=== PATIENT | male | born 1940 | race Two or more races ===

== ENCOUNTER 2025-08-28 12:30 | Outpatient (REF) | payer OTHER, SELFPAY ==
[2025-08-28 17:57] LABS: MANUAL DIFF FLAG NO
[2025-08-28 18:11] LABS: Hematocrit 44.2 % (42.0-52.0); Hemoglobin 14.2 g/dl (14.0-18.0); Imm Gran Abs Auto 0.02 X10*3/uL (0.00-0.03); Imm Gran Pct Auto 0.3 % (0.0-0.4); Lymphocytes Absolute Auto 1.8 X10*3/uL (1.2-4.9); Mean Corpuscular HGB Conc 32.1 g/dl (31.0-36.0); Mean Corpuscular Hemoglobin 28.3 pg (27.0-33.0); Mean Corpuscular Volume 88.0 fL (80.0-98.0); NRBC Abs Auto 0.000 X10*3/uL (0.0-0.012); NRBC Pct Auto 0.0 /100WBC (0.0-0.2); Platelet Count 173 X10*3/uL (160-400); Red Blood Count 5.02 X10*6/uL (4.60-5.80); White Blood Count 6.5 X10*3/uL (4.8-10.8)
[2025-08-28 18:39] LABS: Appearance Urine Turbid; Glucose Urine UA Negative (Negative); PH 5.5 (5.0-9.0); Specific Gravity - Urine >= 1.030 (1.005-1.025)
[2025-08-28 18:41] LABS: Alanine Aminotransferase 70 U/L (0-40); Albumin Level 4.3 g/dL (3.5-5.0); Alkaline Phosphatase 122 U/L (39-117); Anion Gap 11 (12-20); Aspartate Amino Transferase 46 U/L (5-37); Blood Urea Nitrogen 20 mg/dL (9-16); Calcium 9.2 mg/dL (8.4-10.2); Carbon Dioxide 28 mmol/L (22-29); Chloride 108 mmol/L (96-108); Cholesterol 121 mg/dL (<200); Estimated Glomerular Filt Rate 54; HDL Cholesterol 34 mg/dL (>40); Magnesium 2.1 mg/dL (1.6-2.6); Potassium 4.1 mmol/L (3.3-5.1); Sodium 143 mmol/L (135-145); Total Protein 7.2 g/dL (6.5-8.0); Triglycerides 184 mg/dL (<150)
[2025-08-28 18:46] LABS: Microalbum/Creatinine Ratio Ur 4.9 ug/mg cr (<30)
[2025-08-28 18:59] LABS: Folate 6.3 ng/mL (> or = 4.0); Vitamin B12 254 pg/mL (200-900)
[2025-08-29 03:51] LABS: HBS Num1 0.33 mIU/mL (0-7.99); HBsAGNum1 0.38 S/CO (0.00-0.99); Hepatitis B Surface Antigen Negative (Negative); ~HepC Num1 0.10 S/CO (0.00-0.79); ~Hepatitis B Surface Antibody NONREACTIVE (Nonreactive); ~Hepatitis C Antibody Nonreactive (Nonreactive)
[2025-09-01 16:32] LABS: VITAMIN D (1,25 OH) D3 43 pg/mL; Vit D (1,25-Dihydroxy) Total 43 pg/mL (18-72); Vitamin D (1,25 OH) D2 <8 pg/mL
== END 2025-08-28 12:31 | disposition home or self-care (01) ==
LOC: HO.HKASLDS 12:30
PROVIDERS: PCP Student in an Organized Health Care Education/Training Program; Visit Provider Student in an Organized Health Care Education/Training Program
DX: I10 Essential (primary) hypertension (principal); E78.00 Pure hypercholesterolemia, unspecified; K21.9 Gastro-esophageal reflux disease without esophagitis; J30.2 Other seasonal allergic rhinitis; E66.811 Obesity, class 1; Z68.32 Body mass index [BMI] 32.0-32.9, adult; Z13.1 Encounter for screening for diabetes mellitus
CPT/HCPCS: 36415; 80053; 80061; 81003; 82043; 82570; 82607; 82652; 82746; 83036; 83735; 84443; 85025; 86706; 86803; 87340; 99202

== ENCOUNTER 2025-08-28 12:30 | Outpatient (AMB) | payer OTHER, SELFPAY ==
--- OUTSIDE RECORDS SUMMARY | 2025-03-29 06:00 | XMS_ITS ---
Author Organization [facility] [place] Address [address] [place] [address] Care Team Providers Care Presser And Shaper Knitted Goods Name Role Phone Gene Tamayo MD Primary Care Provider Fortino Dexter Unavailable [phone] Allergies Allergen (clinical drug ingredient) Drug/Non Drug [...] Negative Encounters Encounter Location Date Provider Diagnosis [facility] [place] [address] [place] [phone] 03/29/2025 Fortino Medinaier Plan Of Treatment Next Appt Details Provider Name:Fortino Bey , 09/27/2025 02:00:00 PM, [address] [place] [address], [phone], Provider Name:Fortino Bey , 12/13/2025 02:30:00 PM, [address] [place] [address], [phone], Progress Notes * Lucius VELASQUEZ LDOB: [birth year] (85 yo M)Acc No.[id number]:03/29/2025 Progress Notes Patient: Lucius GRAY Provider: Sona Bey DPM :1940 A ge:85 Y S ex:Male Date:03/29/2025 Address:[address] [place] [address] , [address]-[phone] Pcp:Gene Tamayo MD Subjective: * Chief Complaints: * * ROS: G eneral/Constitutional: Nausea d enies. V omiting d enies. H daniel Thirst d enies. L oss appetite d [...] enies. C ardiovascular: Pacemaker d enies. M PRACTICING DERMATOLOGIST d enies. W PW d enies. C [...] 0 03/29/2025 Generated for Minh john/Emeli/Evgenyitting on: 1 03:50 PM EDT
--- OUTSIDE RECORDS SUMMARY | 2025-04-12 09:45 | XMS_ITS ---
Author Organization [facility] Address [address] [place] [phone] Care Team Providers Care Business Systems Advisor Name Role Phone Gene Tamayo MD Primary Care Provider UnavailFortino Snider Unavailable [phone] Allergies Allergen (clinical drug ingredient) Drug/Non Drug Allergy documented on EMR Reaction Allergy Type Onset Date Status ibuprofen Advil Unknown Drug Allergy Active Aleve Unknown Drug Allergy Active meperidine Demerol Unknown Drug Allergy Active Motrin Unknown Drug Allergy Active Encounters Encounter [facility] Date [facility] [phone] [facility]/12/[facility]25 Fortino Bey Plan Of Treatment Next Appt Details Provider Name:Fortino Bey , 09/27/2025 02:00:00 PM, [address] [place] [address], [phone], Provider Name:Fortino Bey , 12/13/2025 02:30:00 PM, [address] [place] [address], [phone], Progress Notes * Lucius VELASQUEZ LDOB: [birth year] (85 yo M)Acc No.[id number]:04/12/2025 Progress Note Patient: Lucius GRAY Katerine Provider: Sona Bey DPM :1940 A ge:85 Y S ex:Male Date:04/12/2025 Address:[address] [place] [address] , [address]-[phone] Pcp:Gene Tamayo MD Subjective: * Chief [...] 0 04/12/2025 Generated for Minh john/Emeli/Joe on: 03:50 PM EDT
--- NOTE | 2025-08-28 13:14 | MHC.PC.OV ---
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 Online Producer Required: No Accompanied by: Self / Same As Patient Allergies acetaminophen (From Vicodin) Allergy (Mild, Verified 08/28/25 13:47) Itching cyclobenzaprine (From Flexeril) Allergy (Mild, Verified 08/28/25 13:47) Itching gabapentin Allergy (Mild, Verified 08/28/25 13:47) Itching hydrocodone (From Vicodin) Allergy (Mild, Verified 08/28/25 13:47) Itching naproxen Allergy (Mild, Verified 08/28/25 13:47) Itching terbinafine (From Lamisil) Allergy (Mild, Verified 08/28/25 13:47) Itching Tobacco use date assessed: 08/28/25 Fall risk assessment: No Falls in past year Last assessed Fall Risk: 08/28/25 Dental Screening Dental Screen Date: 08/28/25 Did you have a dental visit in the last 12 months?: Yes Did you have a dental problem in the last 6 months where you did not have access to dental care?: Yes Was dental information given to patient?: Patient has dentist HPI HPI Comments History of Present Illness Details History of Present Illness patient is coming in to establish care today Hypercholesterolemia: The patient has a history of cholesterol issues. Hypertension Currently on amlodipine and atenolol Hyperlipidemia currently on atorvastatin GERD Currently on famotidine History of Total Knee and Hip Arthroplasty and Limb Pain: The patient has a history of knee and hip replacements, with the knee surgery performed approximately one year ago for severe osteoarthritis. He has metal implants in his knee. 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 He reports a past finger injury that occurred a long time ago. Preventative Care: The patient, aged 85, denies ever having a colonoscopy for colon cancer screening. He denies a history of smoking and reports only occasional alcohol consumption during vacations. The patient reports no issues with his heart, kidneys, or intestines. Surgical History: - Knee replacement, approximately one year ago. - Hip replacement, date unspecified. Social History: - Alcohol Use: Denies regular use, reports drinking occasionally on vacation. - Tobacco Use: Denies history of smoking. Past Medical History - Hypercholesterolemia -hypertension -GERD -seasonal allergies - Severe osteoarthritis of the knee - History of a remote finger injury Health Maintenance - A comprehensive lab panel will be drawn, including a complete blood count, metabolic panel for liver and kidney function, vitamin B12, folate, calcium, and vitamin D. - Follow-up is scheduled in two weeks to discuss the results and determine the subsequent course of action. [facility] Family History (Updated 08/28/25 @ 13:16 by Carissa Morrell [facility]) Mother No problems noted. Father No problems noted. Social History Housing: Apartment Patient Tobacco Use Status: Never used Tobacco service: No Current occupational status: retired Cognitive needs: Yes (ocassionally) Hearing needs: No Vision needs: Yes (reading glasses) Questionnaire PHQ-9 Over the last 2 weeks, how often have you been bothered by any of the following problems? 1. Little interest or pleasure in doing things: not at all 2. Feeling down, depressed, or hopeless: not at all 3. Trouble falling or staying asleep, or sleeping too much: not at all 5. Poor appetite or overeating: not at all 6. Feeling bad about yourself - or that you are a failure or have let yourself or your family down: not at all 7. Trouble concentrating on things, such as reading the newspaper or watching television: not at all 8. Moving or speaking so slowly that other people could have noticed. Or the opposite - being so fidgety or restless that you have been moving around a lot more than usual: not at all 9. Thoughts that you would be better off or of hurting yourself in some way: not at all Source: Developed by Drs. Nitin Ruby, Deysi Robledo, Kev Jewell and colleagues, with an educational shannan from [employer]. Thrive Questionnaire I am a: Patient What is your living situation today?: I have a steady place to live Within the past 12 months, did the food you bought not last and you didn't have the money to get more?: Never true Within the past 12 months, did you worry whether your food would run out before you got money to buy more?: Never true Do you have trouble paying for medicines?: No Do you have trouble getting transportation to medical appointments?: No Do you have trouble paying your heating and electricity bill?: No Do you have trouble taking care of your child, family member or friend?: No Are you currently unemployed and looking for a job?: No Are you interested in more education?: No Please select the resources that you would like help with: None Currently or been in a relationship where the following occur: No concerns reported THRIVE Score: 0 AUDIT C Alcohol Use Questionnaire (AUDIT-C) 1. How often do you have a drink containing alcohol?: Never Total Score: 0 COBY-7 AMB Questionnaire COBY-7 Feeling nervous, anxious, or on edge: 0 = Not at all Not being able to stop or control worryin = Not at all Worrying too much about different things: 0 = Not at all Trouble relaxin = Not at all Being so restless that it is hard to sit still: 0 = Not at all Becoming easily annoyed or irritable: 0 = Not at all Feeling afraid as if something awful might happen: 0 = Not at all Total COBY-7 score (0-4 normal; 5-9 mild; 10-14 moderate; 15-21 severe): 0 Source: Developed by Drs. Nitin Ruby, Deysi Robledo, Kev Jewell and colleagues, with an educational shannan from [employer]. Review of Systems Narrative Review of Systems - Neurological: Denies headaches. - Cardiovascular: Denies any history of heart problems. - Genitourinary: Reports normal urination. Denies history of kidney problems. - Gastrointestinal: Reports normal bowel movements. Denies history of intestinal problems. - Musculoskeletal: Reports occasional foot pain with ambulation. - Constitutional: Reports sleeping well. 10-point ROS reviewed and negative except as noted in HPI Physical exam (Primary Care) Vital Signs: Last Vital Signs Temp 97.5 F 08/28/25 13:21 Pulse 63 08/28/25 13:21 Resp 16 08/28/25 13:21 BP 141/69 H 08/28/25 13:21 Pulse Ox 97 08/28/25 13:21 Oxygen Delivery Method Room Air 08/28/25 13:21 BMI result Body Mass Index 32.3 Tobacco/Smoking Status: Tobacco use Status Tobacco use date assessed 08/28/25 08/28/25 13:16 Patient Tobacco Use Status Never used Tobacco 08/28/25 13:25 Currently or been in a relationship where the following occur: No concerns reported Narrative Physical Exam General: Well-appearing, in no acute distress. Vital signs: Within normal limits. HEENT: Normocephalic, atraumatic. PERRLA, EOMI. Conjunctiva clear, sclera anicteric. Oropharynx clear, mucous membranes moist. TMs intact bilaterally. Neck: Supple, no lymphadenopathy, no thyromegaly, no JVD or carotid bruits. Reports pain in the neck, possibly related to magnesium deficiency. Cardiovascular: RRR, normal S1/S2, no murmurs, rubs, or gallops. Peripheral pulses 2+ and symmetric. No edema. Respiratory: Lungs clear to auscultation bilaterally, no wheezes, rales, or rhonchi. Normal effort. Abdomen: Soft, non-tender, non-distended. Normoactive bowel sounds. No hepatosplenomegaly, no masses. MSK: Full range of motion, no joint swelling or deformity. Normal gait. History of knee and hip surgery with metal implants due to severe osteoarthritis. Complains of foot pain when walking. Skin: Warm, dry, intact. No rashes, lesions, or pallor. Neuro: Alert and oriented x3. Cranial nerves II-XII intact. Strength 5/5 throughout. Sensation intact. Reflexes 2+ symmetric. Normal coordination and gait. Psych: Appropriate mood and affect. Normal judgment and insight. Coding Level of Care Code New Pt Level 4 (88516) Diagnoses Hypertension I10 Hyperlipidemia E78.5 GERD (gastroesophageal reflux disease) K21.9 Seasonal allergies J30.2 Assessment & Plan Assessment & Plan (1) Hypertension: Code(s): I10 - Essential (primary) hypertension (2) Hyperlipidemia: Code(s): E78.5 - Hyperlipidemia, unspecified (3) GERD (gastroesophageal reflux disease): Code(s): K21.9 - Gastro-esophageal reflux disease without esophagitis (4) Seasonal allergies: Code(s): J30.2 - Other seasonal allergic rhinitis Plan Consent Patient was informed and verbally consented to the use of an ambient scribe for clinic note documentation during this visit. Plan 1. hypertension continue with current medication labs 2. hyperlipidemia Continue with current medication labs 3. Seasonal allergies Continue current medication 4. GERD Continue current medication Discussion Notes I had a discussion with the patient regarding his health maintenance. Given his age of 85 and the fact that he has never had a colonoscopy, I recommended colon cancer screening. To avoid the risks of sedation, we opted for a Cologuard test, and I explained that a kit would be sent to his home. In response to his complaints of foot pain, I explained that we would investigate potential mineral or vitamin deficiencies by checking his magnesium and vitamin D levels, among others. I informed him that comprehensive blood work has been ordered and that we will meet in two weeks to review the results and decide on the next steps for his care. Patient Instructions - continue all chronic disease medications - A Cologuard kit will be mailed to your home for colon cancer screening. Please follow the instructions provided. - Please have your blood drawn for the ordered tests, which will check your blood cells, liver, kidneys, and vitamin levels. - Schedule a follow-up appointment in two weeks to discuss your test results. Medical Decision Making The patient is an 85-year-old male presenting for a general health evaluation. A significant finding is the patient's lack of prior colon cancer screening. Given his advanced age, the risks associated with procedural sedation for a colonoscopy outweigh the benefits of direct visualization at this time. Therefore, a non-invasive stool-based DNA test (Cologuard) is a clinically appropriate and safer alternative for screening. The patient's complaint of foot pain, in the context of previous orthopedic surgeries, warrants further investigation for underlying metabolic or nutritional causes. A comprehensive lab panel, including magnesium and vitamin D, was ordered to rule out deficiencies that could contribute to his symptoms. A follow-up is planned in two weeks to review laboratory findings and guide further management. Total time spent caring for the patient today was 30 minutes. This includes time spent before the visit reviewing the chart, time spent documenting, and time spent reviewing laboratory results, diagnostic imaging, medications, performing a medically necessary evaluation, counseling on diagnoses, care coordination Orders: Orders Comprehensive Met. Panel Today Z13.9 - Encounter for screening, unspecified Hepatitis B Surface Antibody Today Z13.9 - Encounter for screening, unspecified Hepatitis C Antibody Today Z13.9 - Encounter for screening, unspecified TSH reflex Free T4 Today Z13.9 - Encounter for screening, unspecified UA CC w/rflx Micro + Cult Today Z13.9 - Encounter for screening, unspecified Vitamin D 1,25 dihydroxy Today Z13.9 - Encounter for screening, unspecified Vitamin B12 and Folate Today Z13.9 - Encounter for screening, unspecified Complete Blood Count Auto Diff Today Z13.9 - Encounter for screening, unspecified Hemoglobin A1c Today Z13.9 - Encounter for screening, unspecified Hepatitis B Surface Antigen Today Z13.9 - Encounter for screening, unspecified Lipid Panel Today Z13.9 - Encounter for screening, unspecified Magnesium Today Z13.9 - Encounter for screening, unspecified Microalbumin, Random (w Creat) Today Z13.9 - Encounter for screening, unspecified Referrals Cologuard Test Z12.11 - Encounter for screening for malignant neoplasm of colon, Z12.12 - Encounter for screening for malignant neoplasm of rectum
[2025-08-28 13:21] VITALS: BP 141/69; PULSE 63; RESP 16; TEMP 36.4; O2SAT 97; BMI 32.3
--- OUTSIDE RECORDS SUMMARY | 2025-08-28 15:50 | XMS_ITS | Clinical Summary ---
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 Name Role Phone Unavailable Primary Care Provider Unavailabl e Social History Tobacco Use Types Packs/Day Years Used Date Smoking Tobacco: Never Assessed Sex and Gender Information Value Date Recorded Sex Assigned at Not on file Legal Sex Male 8:25 PM EST Gender Identity Not on file Sexual Orientation Not on file Plan of Treatment Health Maintenance Due Date Last Done Comments DTaP,Tdap,and Td Vaccines (1 - Tdap) 1959 Pneumococcal Vaccine: 50+ Ye ars (1 of 1 - PCV) 1990 Zoster Vaccines (1 of 2) 1990 RSV Immunization Adult Patie nts (1 - 1-dose 75+ series) 2015 Cholesterol Screening (Lipid Panel) 11/27/2023 Falls Risk Assessment 11/27/2023 Social Influencers of Health Screening 11/27/2023 Depression Screening 11/02/2024 COVID-19 Vaccine (1 - 2023-2 5 season) 2025 Influenza Vaccine (#1) 2025 HIB Vaccines Aged Out No longer eligi ble based on patient's age to complete this topic HPV Vaccines Aged Out No longer eligi ble based on patient's age to complete this topic Hepatitis A Vaccines Aged Out No long er eligible based on patient's age to complete this topic Hepatitis B Vaccines Aged Out No long er eligible based on patient's age to complete this topic IPV Vaccines Aged Out No longer eligi ble based on patient's age to complete this topic MMR Vaccines Aged Out No longer eligi ble based on patient's age to complete this topic Meningococcal ACWY Vaccine Aged Out N o longer eligible based on patient's age to complete this topic Meningococcal B Vaccine Aged Out No l onger eligible based on patient's age to complete this topic RSV Immunization Patients Un tasneem 20 months Aged Out No longer eligible b ased on patient's age to complete this topic Varicella Vaccines Aged Out No longer eligible based on patient's age to complete this topic
--- OUTSIDE RECORDS SUMMARY | 2025-08-28 15:51 | XMS_ITS | Patient Health Record ---
[facility] [place] Address [address] [place] [address] Care Team Providers Care Contract Attorney Name Role Phone Gene Tamayo MD Primary Care Provider Fortino Dexter Unavailable [phone] Allergies Allergen (clinical drug ingredient) Drug/Non Drug Allergy documented on EMR Reaction Allergy Type Onset Date Status ibuprofen Advil Unknown Drug Allergy Active Aleve Unknown Drug Allergy Active meperidine Demerol Unknown Drug Allergy Active Motrin Unknown Drug Allergy Active Reason For Referral No Information Medications Medication SIG (Take, Route, Frequency, Duration) Notes Start Date End Date Status Cetirizine HCl 10 MG TOME EZEQUIEL TABLETA PO R V A ORAL TODOS LOS D CUANDO SEA NECESARIO FOR ITCHING Oral; Duration: 90 Days Active Atorvastatin Calcium 80 MG TOME 1 TABLET A POR V A ORAL TODOS LOS D AL ACOSTARSE Oral; Duration: 90 Days Active Atenolol 25 MG Oral; Duration: 90 Days Active amLODIPine Besylate 5 MG TOME 1 TABLETA POR V A ORAL TODOS LOS D Oral; Duration: 90 Days Active Lisinopril Active Ketoconazole 2 % 1 application Apply a thin layer to externally to feet, even between toes Twice a day; Duration: 30 days Active Nabumetone 500 MG Oral; Duration: 30 Days Active Fluocinonide 0.05 % External; Duration: 60 Days Active Famotidine 20 MG TOME 1 TABLETA POR V A ORAL DOS VECES AL D A Oral; Duration: 90 Days Active Immunizations Vaccine Route Administration Date Status Comme nts Influenza Unknown 07/05/2024 Administered Social History Tobacco Use: Social History Observation [...] ast year? No Points 0 Interpretation Negative Problems Problem Type SNOMED Code ICD Code Onset Dates Problem Status W/U Status Risk Notes Problem Bilateral atherosclerosis of arteries of lower limbs (disorder) ([id number] ) Atherosclerosis of [place] artery of both lower extremities, with unspecified presence of clinical manifestation (I70.203) Active confirmed Q7(A), Q8(2B), Q9(1B,2 C) Vital Signs Height 5ft 5in in 06/29/2025 Weight 217 lbs 06/29/2025 BMI 36.11 kg/m2 06/29/2025 Procedures Procedure Date Ordered Date Performed Result Body Sit e 65214-WOMGJPW NAIL, 6 OR MORE 01/11/2025 N/A 67691-XIHT SKIN LESIONS, 2 TO 4 01/11/2025 N/A 76329-TOIREOA NAIL, 6 OR MORE 06/29/2025 N/A 08272-IOLO SKIN LESIONS, 2 TO 4 06/29/2025 N/A Encounters Encounter [facility] Date [facility] [address] 01/11/2025 Fortino Bey Atherosclerosis of [place] artery of both lower extremities, with unspecified presence of clinical manifestation I70.203 ; Tinea unguium B35.1 ; Pain in right toe(s) M79.674 ; Pain in left toe(s) M79.675 ; Pain in left ankle and joints of left foot M25.572 ; Hallux valgus (acquired), left foot M20.12 ; Pain in right ankle and joints of right foot M25.571 and Hallux valgus (acquired), right foot M20.[address] [address] 06/29/2025 Fortino Bey Atherosclerosis of [place] artery of both lower extremities, with unspecified presence of clinical manifestation I70.203 ; Tinea unguium B35.1 ; Pain in right toe(s) M79.674 ; Pain in left toe(s) M79.675 and Tinea pedis of both feet B35.3 [facility] [address] [address] 04/12/2025 Fortino Bey Assessments Encounter Date Diagnosis (ICD Code) Assessment Notes Treatment Notes Treatment Clinical Notes Section Notes 01/11/2025 Tinea unguium (ICD-10 - B35.1) 01/11/2025 Atherosclerosis of [place] artery of both lower extremities, with unspecified presence of clinical manifestation (ICD-10 - I70.203) Q7(A), Q8(2B), Q9(1B,2C) 06/29/2025 Tinea unguium (ICD-10 - B35.1) 06/29/2025 Atherosclerosis of [place] artery of both lower extremities, with unspecified presence of clinical manifestation (ICD-10 - I70.203) Q7(A), Q8(2B), Q9(1B,2C) 06/29/2025 Pain in right toe(s) (ICD-10 - M79.674) 01/11/2025 Pain in right toe(s) (ICD-10 - M79.674) 06/29/2025 Pain in left toe(s) (ICD-10 - M79.675) 01/11/2025 Pain in left toe(s) (ICD-10 - M79.675) 01/11/2025 Pain in left ankle and joints of left foot (ICD-10 - M25.572) 01/11/2025 Hallux valgus (acquired), left foot (ICD-10 - M20.12) 06/29/2025 Tinea pedis of both feet (ICD-10 - B35.3) Patient Educated with: ATHELETE .pdf (ATHELETE .pdf) 01/11/2025 Pain in right ankle and joints of right foot (ICD-10 - M25.571) 01/11/2025 Hallux valgus (acquired), right foot (ICD-10 - M20.11) Plan Of Treatment Pending Test Test Name Order Date 39766-JVQEOCM NAIL, 6 OR MORE 01/11/2025 12081-YSGTTWO NAIL, 6 OR MORE 06/29/2025 32010-QVBL SKIN LESIONS, 2 TO 4 06/29/20 70036-RRTT SKIN LESIONS, 2 TO 4 01/12/20 Next Appt Details Provider Name:Fortino Bey , 09/27/2025 02:00:00 PM, [address] [facility], [place] [address], [place], [address], Provider Name:Fortino Mitchell Maida , 12/13/2025 02:30:00 PM, [address] [facility], [place] [address], [place], [address], Insurance Providers Payer Name Payer Address Payer Phone Subscriber Number Group Number Insured Name Patient Relationship to Insured Coverage Start Date Coverage End Date [facility] [address] [place] [phone] [id number] Lucius Elias Self - patient is the insured Medical (General) History Medical History History ICD Code High Blood Pressure Chicken pox Joint implants/screws Bone implants/screws Surgical History Surgery Date(Month/Year) knee replacement hip replacement
== END 2025-08-28 13:42 | disposition home or self-care (01) ==
LOC: HO.HMCFMS 12:31
PROVIDERS: Visit Provider Student in an Organized Health Care Education/Training Program
DX: I10 Essential (primary) hypertension (principal); E78.5 Hyperlipidemia, unspecified; K21.9 Gastro-esophageal reflux disease without esophagitis; J30.2 Other seasonal allergic rhinitis

== ENCOUNTER 2025-09-13 12:12 | Outpatient (AMB) | payer OTHER, SELFPAY ==
--- OUTSIDE RECORDS SUMMARY | 2025-03-29 05:00 | XMS_ITS ---
Author Organization [facility] [place] Address [address] [place] [address] Care Team Providers Care Travel Agent Name Role Phone Gene Tamayo MD Primary Care Provider Fortino Dexter Unavailable [phone] Allergies Allergen (clinical drug ingredient) Drug/Non Drug Allergy documented on EMR Reaction Allergy Type Onset Date Status ibuprofen Advil Unknown Drug Allergy Active Aleve Unknown Drug Allergy Active meperidine Demerol Unknown Drug Allergy Active Motrin Unknown Drug Allergy Active Medications Medication SIG (Take, Route, Frequency, Duration) Notes Start Date End Date Status Ketoconazole 2 % External; Duration: 15 Days Active Nabumetone 500 MG Oral; Duration: 30 Days Active amLODIPine Besylate 5 MG TOME 1 TABLETA POR V A ORAL TODOS LOS D Oral; Duration: 90 Days Active Fluocinonide 0.05 % External; Duration: 60 Days Active Famotidine 20 MG TOME 1 TABLETA POR V A ORAL DOS VECES AL D A Oral; Duration: 90 Days Active Atenolol 25 MG Oral; Duration: 90 Days Active Cetirizine HCl 10 MG TOME EZEQUIEL TABLETA PO R V A ORAL TODOS LOS D CUANDO SEA NECESARIO FOR ITCHING Oral; Duration: 90 Days Active Atorvastatin Calcium 80 MG TOME 1 TABLET A POR V A ORAL TODOS LOS D AL ACOSTARSE Oral; Duration: 90 Days Active Social History Tobacco Use: Social History Observation Description Date Details (start date - stop date) Never Smoker NA - NA Tobacco use other than smoking: Question Answer Notes Are you an other tobacco user? No Tobacco Control (Standard) Question Answer Notes Tobacco use: Nonsmoker Additional Findings: Tobacco non-user Current no nsmoker AUDIT-C (Standard) Question Answer Notes Did you have a drink containing alcohol in the p ast year? No Points 0 Interpretation Negative Encounters Encounter Location Date Provider Diagnosis [facility] [place] [address] [place] [phone] 03/29/2025 Fortino Medinaier Plan Of Treatment Next Appt Details Provider Name:Fortino Bey , 09/27/2025 02:00:00 PM, [address] [place] [address], [phone], Provider Name:Fortino Bey , 12/13/2025 02:30:00 PM, [address] [place] [address], [phone], Progress Notes * uLcius VELASQUEZ LDOB: [birth year] (85 yo M)Acc No.[id number]:03/29/2025 Progress Notes Patient: Lucius GRAY Provider: Sona Bey DPM :1940 A ge:85 Y S ex:Male Date:03/29/2025 Address:[address] [place] [address] , [address]-[phone] Pcp:Gene Tamayo MD Subjective: * Chief Complaints: * * ROS: G eneral/Constitutional: Nausea d enies. V omiting d enies. H dainel Thirst d enies. L oss appetite d enies. C hills d enies. F atigue d enies.?Fever d enies. N ight Sweats d enies. U nexplained weight loss d enies. U nexplained weight gain d enies. H EENTM: Dentures d enies. D izziness d enies. G lasses/contacts d enies. R etinopathy d enies. B lurred/double vision d enies. T MJ?denies. D ischarge/drainage d enies. I mplants d enies. S ore throat d enies. D ental implants d enies. H lora of hearing d enies. D ifficulty chewing/swallowing/speaking d enies. N ose bleeds d enies. S ore mouth d enies. ? R espiratory: On Oxygen d enies. P neumonia/pleurisy d enies.?Bronchitis d enies. E mphysema d enies. C oughing d enies. C ough blood?denies. S hortness of breath d enies. W heezing d enies. C ardiovascular: Pacemaker d enies. M POLE CUTTER d enies. W PW d enies. C HF d enies. H eart attack d enies. S eptal defect d enies. R apid beat d enies. C hest pain d enies. A trial Fib. d enies. M urmur/Palpitations d enies. G astrointestinal: Hemorrhoids d enies. S tomach/Abdominal pain d enies. D ark blood stool d enies. I rritable bowel d enies. C onstipation d enies. D iarrhea d enies. H ematology: Swelling d enies. C lots d enies. V aricose Veins d enies. B ruising d enies. B leeding problem d enies. G enitourinary: Blood urine d enies. F requent/Painfu/urination/bladder control d enies. K idney stones d enies. I nfection (UTI) d enies. N ephropathy d enies. s ex trans dis (STD) d enies. P rostate d enies. M usculoskeletal: Hammertoes d enies. B unions d enies. B ack Pain d enies. M uscle Cramps/ Resting d enies. M uscle cramps / walking d enies.?Generalized aches and pains d enies. W eakness d enies. I nteg.: Shearer d enies. S cars d enies. C orns/calluses?denies. I ngrown nails d enies. P ainful nails d enies. O pen Sores d enies. R ashes d enies. N eurologic: Difficulty sleeping d enies. B rain disorder d enies. N umbness d enies. B alance trouble d enies. C onfusion d enies. F ainting/blackouts d enies. T ingling d enies. T remors d enies. * Medical History: H igh Blood Pressure, Chicken pox, Joint implants/screws, Bone implants/screws. * Surgical History: k nee replacement , hip replacement . * Family History: M other: . F ather: . N on-Contributory. * Social History: T obacco Use: T obacco use other than smoking A re you an other tobacco user? N o Tobacco Control (Standard) T obacco use: N onsmoker A dditional Findings: Tobacco non-user C urrent nonsmoker D rugs/Alcohol: D rugs H ave you used drugs other than those for medical reasons in the past 12 months? N o M iscellaneous: C affeine: yes. Marital status: partner. D rug/Alcohol: A EDIE-C (Standard) D id you have a drink containing alcohol in the past year? N o P oints 0 I nterpretation N egative * Medications: T aking amLODIPine Besylate 5 MG Tablet TOME 1 TABLETA POR V A ORAL TODOS LOS D Oral , Taking Atenolol 25 MG Tablet Oral , Taking Atorvastatin Calcium 80 MG Tablet TOME 1 TABLETA POR V A ORAL TODOS LOS D AL ACOSTARSE Oral , Taking Cetirizine HCl 10 MG Tablet TOME EZEQUIEL TABLETA POR V A ORAL TODOS LOS D CUANDO SEA NECESARIO FOR ITCHING Oral , Taking Famotidine 20 MG Tablet TOME 1 TABLETA POR V A ORAL DOS VECES AL D A Oral , Taking Fluocinonide 0.05 % Ointment External , Taking Ketoconazole 2 % Cream External , Taking Nabumetone 500 MG Tablet Oral * Allergies: A dvil, Aleve, Motrin, Demerol. Objective: * Vitals: Assessment: Plan: * Treatment: * Images: * The named appointment provid er may or may not be the originator of this progress note, and it is not deemed complete until electronically signed by the appointment provider. Sign off status: Pending * Provider: Sona Bey DPM Date: 0 03/29/2025 Generated for Minh john/Emeli/Evgenyitting on: 11/13/2024 02:59 PM EST
--- OUTSIDE RECORDS SUMMARY | 2025-04-12 08:45 | XMS_ITS ---
Author Organization [facility] Address [address] [place] [phone] Care Team Providers Care Venereal Disease Investigator Name Role Phone Gene Tamayo MD Primary Care Provider UnavailFortino Snider Unavailable [phone] Allergies Allergen (clinical drug ingredient) Drug/Non Drug Allergy documented on EMR Reaction Allergy Type Onset Date Status ibuprofen Advil Unknown Drug Allergy Active Aleve Unknown Drug Allergy Active meperidine Demerol Unknown Drug Allergy Active Motrin Unknown Drug Allergy Active Encounters Encounter [facility] Date [facility] [phone] [facility]/12/[facility] Fortino Bey Plan Of Treatment Next Appt Details Provider Name:Fortino Bey , 09/27/2025 02:00:00 PM, [address] [place] [address], [phone], Provider Name:Fortino Bey , 12/13/2025 02:30:00 PM, [address] [place] [address], [phone], Progress Notes * Lucius VELASQUEZ LDOB: [birth year] (85 yo M)Acc No.[id number]:04/12/2025 Progress Note Patient: Lucius GRAY Provider: Sona Bey DPM :1940 A ge:85 Y S ex:Male Date:04/12/2025 Address:[address] [place] [address] , [address]-[phone] Pcp:Gene Tamayo MD Subjective: * Chief Complaints: * * Medical History: H igh Blood Pressure, Chicken pox, Joint implants/screws, Bone implants/screws. * Allergies: A dvil, Aleve, Motrin, Demerol. Objective: * Vitals: Assessment: Plan: * Treatment: * Images: * The named appointment provid er may or may not be the originator of this progress note, and it is not deemed complete until electronically signed by the appointment provider. Sign off status: Pending * Provider: Sona Bey DPM Date: 0 04/12/2025 Generated for Minh john/Emeli/Joe on: 11/13/2024 03:00 PM EST
--- NOTE | 2025-09-13 13:22 | A.OFFPC_ITS ---
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 Machine Required: Yes Sweeper Brush Maker Machine Language: Buyer Name: I speak Yi Accompanied by: Self / Same As Patient Allergies acetaminophen (From Vicodin) Allergy (Mild, Verified 09/13/25 13:23) Itching cyclobenzaprine (From Flexeril) Allergy (Mild, Verified 09/13/25 13:23) Itching gabapentin Allergy (Mild, Verified 09/13/25 13:23) Itching hydrocodone (From Vicodin) Allergy (Mild, Verified 09/13/25 13:23) Itching naproxen Allergy (Mild, Verified 09/13/25 13:23) Itching terbinafine (From Lamisil) Allergy (Mild, Verified 09/13/25 13:23) Itching Medication List - Last Reconciled 09/13/25 by Andrea Zamarripa MD amlodipine 5 mg PO DAILY atenolol 25 mg PO DAILY atorvastatin 80 mg PO DAILY cetirizine 10 mg PO DAILY PRN famotidine 20 mg PO BID metformin 500 mg PO BID Tobacco use date assessed: 08/28/25 Fall risk assessment: No Falls in past year Last assessed Fall Risk: 09/13/25 Dental Screening Dental Screen Date: 08/28/25 HPI HPI Comments History of Present Illness Details History of Present Illness The patient is an 85-year-old male presenting for a review of laboratory results. Prediabetes The patient was found to have an elevated Hemoglobin A1c level on recent lab w ork, with no prior history of diabetes. Elevated liver enzymes: Recent laboratory results indicated elevated liver enzymes. Social History: - The patient has no prior history of se eing a strategic manager. Diagnostic Results: - Labs: White blood cell and red blood c ell counts are normal. - Labs: Hemoglobin and hematocrit are no rmal, with no evidence of anemia or infection. - Labs: Platelets are normal. - Labs: Sodium and potassium levels are normal. - Labs: Liver enzymes are elevated. - Labs: Glucose is elevated. Past Medical History - The patient denies a history of diabet es. Health Maintenance - The patient was advised to complete a colon cancer screening test that was previously sent to him. - A referral to a strategic manager or christian j[employer] recruiter was recommended for dietary counseling. [facility] Medical History (Updated 09/13/25 @ 20:54 by Andrea Zamarripa MD) Class 1 obesity Prediabetes Hypertriglyceridemia Elevated liver enzymes Family History Mother No problems noted. Father No problems noted. Social History (Updated 09/13/25 @ 13:24 by Dimas Rice CMA) Housing: Apartment Alcohol intake: current Comment: ocasionally Patient Tobacco Use Status: Never used Tobacco service: No Current occupational status: retired Cognitive needs: Yes (ocassionally) Hearing needs: No Vision needs: Yes (reading glasses) Questionnaire Thrive Questionnaire Date Thrive assessed: 08/28/25 I am a: Patient What is your living situation today?: I have a steady place to live Within the past 12 months, did the food you bought not last and you didn't have the money to get more?: Never true Within the past 12 months, did you worry whether your food would run out before you got money to buy more?: Never true Do you have trouble paying for medicines?: No Do you have trouble getting transportation to medical appointments?: No Do you have trouble paying your heating and electricity bill?: No Do you have trouble taking care of your child, family member or friend?: No Are you currently unemployed and looking for a job?: No Are you interested in more education?: No Please select the resources that you would like help with: None Currently or been in a relationship where the following occur: No concerns reported THRIVE Score: 0 Review of Systems Narrative Review of Systems 10-point ROS reviewed and negative except as noted in HPI Physical exam (Primary Care) Vital Signs: Last Vital Signs Temp 97.9 F 09/13/25 13:24 Pulse 61 09/13/25 13:24 Resp 16 09/13/25 13:24 BP 158/76 H 09/13/25 13:24 Pulse Ox 96 09/13/25 13:24 Oxygen Delivery Method Room Air 09/13/25 13:24 BMI result Body Mass Index 32.0 Tobacco/Smoking Status: Tobacco use Status Tobacco use date assessed 08/28/25 09/13/25 13:26 Patient Tobacco Use Status Never used Tobacco 09/13/25 13:26 Thrive Assessment: Date of Thrive Assessment Date Thrive assessed 08/28/25 09/13/25 13:26 Currently or been in a relationship where the following occur: No concerns reported Narrative Physical Exam General: Well-appearing, in no acute distress. Vital signs: Within normal limits. HEENT: Normocephalic, atraumatic. PERRLA, EOMI. Conjunctiva clear, sclera anicteric. Oropharynx clear, mucous membranes moist. TMs intact bilaterally. Neck: Supple, no lymphadenopathy, no thyromegaly, no JVD or carotid bruits. Cardiovascular: RRR, normal S1/S2, no murmurs, rubs, or gallops. Peripheral pulses 2+ and symmetric. No edema. Respiratory: Lungs clear to auscultation bilaterally, no wheezes, rales, or rhonchi. Normal effort. Abdomen: Soft, non-tender, non-distended. Normoactive bowel sounds. No hepatosplenomegaly, no masses. Elevated liver enzyme noted. MSK: Full range of motion, no joint swelling or deformity. Normal gait. Skin: Warm, dry, intact. No rashes, lesions, or pallor. Neuro: Alert and oriented x3. Cranial nerves II-XII intact. Strength 5/5 throughout. Sensation intact. Reflexes 2+ symmetric. Normal coordination and gait. Psych: Appropriate mood and affect. Normal judgment and insight. Coding Level of Care Code Est Pt Level 3 (54345) Diagnoses Prediabetes R73.03 Elevated liver enzymes R74.8 Hypertension I10 Class 1 obesity E66.9 Assessment & Plan Assessment & Plan (1) Prediabetes: Code(s): R73.03 - Prediabetes Category: Medical (2) Elevated liver enzymes: Code(s): R74.8 - Abnormal levels of other serum enzymes Category: Medical (3) Hypertension: Code(s): I10 - Essential (primary) hypertension (4) Class 1 obesity: Code(s): E66.9 - Obesity, unspecified Category: Medical Plan Consent Patient was informed and verbally consented to the use of an ambient scribe for clinic note documentation during this visit. Plan 1. Prediabetes - New-onset hyperglycemia was noted on recent labs in this patient with no prior history of diabetes. - Will prescribe medication to manage blood glucose. - A referral to a strategic manager/registered client associate will be placed for dietary counseling. - Follow-up is scheduled in three months to reassess. 2. Elevated Liver Enzymes - Laboratory results show elevated liver enzymes. - An order for a liver sonogram will be placed to further evaluate. - A follow-up is scheduled in three months. Discussion Notes I reviewed the patient's recent lab results with him. I explained that his blood counts and electrolytes were normal, but his HgbA1c was elevated and his liver function tests showed some abnormality. We discussed that he has no prior history of diabetes. I informed him of the plan to order a liver ultrasound and prescribe medication for the elevated HgbA1c . I also recommended a consultation with a strategic manager and reminded him to complete his colon screening test. We will follow up in three months to review his progress and the results of the imaging. Patient Instructions - A new medication will be prescribed for you; please take it as directed. - An ultrasound of your liver will be ordered. - A referral will be made for you to see a strategic manager for dietary advice. - Please complete the colon test that was mailed to you. - Please schedule a follow-up appointment in three months. Medical Decision Making This 85-year-old male presented for a review of his recent laboratory studies. The results were significant for new-onset hyperglycemia and elevated liver enzymes in a patient with no prior history of diabetes. His CBC and electrolytes were within normal limits. The management plan is to address the metabolic and hepatic abnormalities. A medication will be initiated for glycemic control, and a referral to a strategic manager is warranted for dietary modification. To investigate the elevated liver enzymes, a liver ultrasound is the appropriate next diagnostic step. The patient will follow up in three months for re-evaluation. Total time spent caring for the patient today was 20 minutes. This includes time spent before the visit reviewing the chart, time spent documenting, and time spent reviewing laboratory results, diagnostic imaging, medications, performing a medically necessary evaluation, counseling on diagnoses, care coordination. Orders: Orders US abdomen limited Today R74.8 - Abnormal levels of other serum enzymes Referrals Nurse Navigator Referral E78.1 - Pure hyperglyceridemia, R74.8 - Abnormal levels of other serum enzymes Medications: New metformin 500 mg PO BID 180 tabs 0RF
[2025-09-13 13:24] VITALS: BP 158/76; PULSE 61; RESP 16; TEMP 36.6; O2SAT 96; BMI 32.0
--- OUTSIDE RECORDS SUMMARY | 2025-09-13 15:00 | XMS_ITS | Patient Health Record ---
[facility] [place] Address [address] [place] [address] Care Team Providers Care Assistant Dean Of Students Name Role Phone Gene Tamayo MD Primary Care Provider Fortino Dexter Unavailable [phone] Allergies Allergen (clinical drug ingredient) Drug/Non Drug [...] atherosclerosis of arteries of lower limbs (disorder) ([id number] ) Atherosclerosis of [place] artery of both lower extremities, with unspecified presence of clinical manifestation (I70.203) Active confirmed Q7(A), Q8(2B), Q9(1B,2 C) Vital Signs Height 5ft 5in in 06/29/2025 Weight 217 lbs 06/29/2025 BMI 36.11 kg/m2 06/29/2025 Procedures Procedure Date Ordered Date Performed Result Body Sit e 96753-TCNVODY NAIL, 6 OR MORE 01/11/2025 N/A 12708-RALH SKIN LESIONS, 2 TO 4 01/11/2025 N/A 18608-OMVWJET NAIL, 6 OR MORE 06/29/2025 N/A 61036-ZHUZ SKIN LESIONS, 2 TO 4 06/29/2025 N/A Encounters Encounter [facility] Date [facility] [address] 01/11/[facility]25 Fortino Bey Atherosclerosis of [place] artery of both lower extremities, with unspecified [...] and Hallux valgus (acquired), right foot M20.[address] [address] 06/29/2025 Fortino Bey Atherosclerosis of [place] artery of both lower extremities, with unspecified presence of clinical manifestation I70.203 ; Tinea unguium B35.1 ; Pain in right toe(s) M79.674 ; Pain in left toe(s) M79.675 and Tinea pedis of both feet B35.3 [facility] [address] [address] 04/12/2025 Fortino Bey Assessments Encounter Date Diagnosis (ICD Code) Assessment Notes Treatment Notes Treatment Clinical Notes Section Notes 01/11/2025 Tinea unguium (ICD-10 - B35.1) 01/11/2025 Atherosclerosis of [place] artery of both lower extremities, with unspecified presence of clinical manifestation (ICD-10 - I70.203) Q7(A), Q8(2B), Q9(1B,2C) 06/29/2025 Tinea unguium (ICD-10 - B35.1) 06/29/2025 Atherosclerosis of [place] artery of both lower extremities, with unspecified [...] Treatment Pending Test Test Name Order Date [id number] NAIL, 6 OR MORE 01/11/2025 75583-QKUVRUR NAIL, 6 OR MORE 06/29/2025 48948-MIVF SKIN LESIONS, 2 TO 4 06/29/20 25109-ZDWO SKIN LESIONS, 2 TO 4 01/12/20 Next Appt Details Provider Name:Fortino Bey , 09/27/2025 02:00:00 PM, [address] [facility], [place] [address], [place], [address], Provider Name:Fortino Mitchell Maida , 12/13/2025 02:30:00 PM, [address] [facility], [place] [address], [place], [address], Insurance Providers Payer Name Payer Address Payer Phone Subscriber Number Group Number Insured Name Patient Relationship to Insured Coverage Start Date Coverage End Date [facility] [address] [place] [phone] [id number] Lucius Elias Self - patient is the insured Medical (General) History Medical History History ICD Code High Blood Pressure Chicken pox Joint implants/screws Bone implants/screws Surgical History Surgery Date(Month/Year) knee replacement hip replacement
== END 2025-09-13 13:55 | disposition home or self-care (01) ==
LOC: HO.HMCFMS 12:13
PROVIDERS: Visit Provider Student in an Organized Health Care Education/Training Program
DX: R73.03 Prediabetes (principal); R74.8 Abnormal levels of other serum enzymes; I10 Essential (primary) hypertension; E66.9 Obesity, unspecified

== ENCOUNTER → 2025-09-13 12:12 | Outpatient (BNVA) | payer OTHER, SELFPAY | PROVIDERS: Visit Provider Student in an Organized Health Care Education/Training Program | DX: R73.03 Prediabetes (principal); R74.8 Abnormal levels of other serum enzymes; I10 Essential (primary) hypertension; E66.9 Obesity, unspecified; Z68.32 Body mass index [BMI] 32.0-32.9, adult | CPT/HCPCS: 99212 ==